=== PATIENT | male | born 1985 | race Caucasian/White ===

== ENCOUNTER 2016-06-14 17:12 | Emergency (ER) | payer SELFPAY ==
[~2016-06-14] VITALS: Ht 185.4 cm; Wt 70.3 kg
[2016-06-14] MEDS ORDERED: CEPHALEXIN500 MG ORAL (17:57)
[2016-06-14] MEDS ORDERED: BACTRIM DS TAB1 EAC1 ORAL (17:57)
[2016-06-14] MEDS ORDERED: BACITRACIN1 APPLIC TOPIC (17:57)
[2016-06-14] MEDS ORDERED: IBUPROFEN600 MG ORAL (17:57)
[2016-06-14 18:16] VITALS: BP 136/87
--- NOTE | 2016-06-14 22:05 | Emergency Room Report ---
History of Present Illness General Chief Complaint: Skin Rash/Abscess Source: Patient Present Illness HPI The patient is a 30-year-old male presenting for nasal pain which began one week prior. The patient noticed redness and swelling to the right side of the nose. Patient noticed clear discharge yesterday from the area. He describes a 4/10 dull ache it does not radiate. Pain worse with touch. He denies any bleeding. The patient denies other symptoms including N, V, F, chills, MELGAR Allergies: Coded Allergies: No Known Allergies (Unverified , 06/14/16) Patient History Past Medical History: see triage record Pertinent Family History: none Reviewed Nursing Documentation: PMH: Agreed, PSxH: Agreed Nursing Documentation-PMH Past Medical History: No Stated History Review of Systems All Other Systems: negative except mentioned in HPI Physical Exam Vital Signs Date Time Temp Pulse Resp B/P Pulse Ox O2 Delivery O2 Flow Rate FiO2 06/14/16 17:33 98.1 70 16 132/78 100 Room Air Sp02 EP Interpretation: reviewed, normal General Appearance: no apparent distress, alert, GCS 15, non-toxic Head: normocephalic, atraumatic Eyes: bilateral eye PERRL, bilateral eye normal inspection ENT: normal pharynx, normal voice, uvula midline, other - R nare: 1cm indurated abscess internally. TTP. No DC Neck: full range of motion, supple/symm/no masses Respiratory: chest non-tender, lungs clear, normal breath sounds, speaking full sentences Musculoskeletal: back normal, gait/station normal, normal range of motion, non- tender Neurologic: alert, oriented x3, responsive, motor strength/tone normal, sensory intact, speech normal Psychiatric: judgement/insight normal, memory normal, mood/affect normal, no suicidal/homicidal ideation Skin: normal turgor, rash - erythema to R inferior nare Lymphatic: no adenopathy Medical Decision Making PA Attestation Dr. Parada is my supervising physician. Patient management was discussed with my supervising physician Diagnostic Impression: Primary Impression: Abscess ER Course The patient is a 30-year-old male presenting for nasal pain which began one week prior Differential diagnoses considered but not limited to: abscess, cellulitis, insect bite PE: vitals WNL. HEENT: R nare has 1cm indurated abscess internally. No fluctuance. TTP. No DC. No bleeding. Patent. This abscess is not ready for I&D. The patient is discharged home with prescription for bacitracin, and keflex, and bacitracin. The patient will follow up with PMD. ER precautions are given Last Vital Signs Date Time Temp Pulse Resp B/P Pulse Ox O2 Delivery O2 Flow Rate FiO2 06/14/16 18:16 98.1 73 16 136/87 97 Room Air Status: improved Disposition: HOME, SELF-CARE Condition: Improved Scripts Bacitracin (Bacitracin Zinc) 15 Gm Oint...g. 1 APPLIC TOPIC TID, #15 GM Prov: TERZACHANJASKARAN P.A. 06/14/16 Trimethoprim/Sulfamethoxazole 160/800* (BACTRIM DS TABLET*) 1 Each Tablet 1 TAB ORAL TWICE A DAY, #14 TAB Prov: TERZACHANRENETTAY P.A. 06/14/16 Cephalexin* (KEFLEX*) 500 Mg Capsule 500 MG ORAL EVERY 6 HOURS, #28 CAP Prov: DANIELAANRENETTAY P.A. 06/14/16 Ibuprofen* (MOTRIN*) 600 Mg Tablet 600 MG ORAL Q8H Y for For Pain, #30 TAB 0 Refills Prov: TERZIANJASKARAN P.A. 06/14/16 Referrals: NOT CHOSEN IPA/MD,REFERRING (PCP) Patient Instructions: Abscess Additional Instructions: I discussed my findings with the patient. All questions and concerns have been answered. Treatment and medication compliance have been addressed. I advised the patient that they need to follow up with PMD in 3-5 days. Return to ED if symptoms worsen, new symptoms arise, or if needed for any reason. Patient verbalized understanding of discharge instructions. JASKARAN DOAN Jun 14, 2016 22:05
== END 2016-06-14 18:30 | disposition home or self-care (01) ==
LOC: EMR 18:19
DX: L02.01 Cutaneous abscess of face (principal)
CPT/HCPCS: 99284